=== PATIENT | male | born 1990 | race Caucasian/White ===

== ENCOUNTER 2021-07-05 03:01 | Emergency (ER) | payer BC ==
[~2021-07-05] VITALS: Ht 180.3 cm; Wt 90.3 kg
[~2021-07-05 03:01] MED LIST: AUGMENTIN 875875 MG PO; MELOXICAM7.5 MG PO; PERCOCET 5-3251 EACH PO; TOBRADEX ST EYE5 ML OP; TRAMADOL 50 MG50 MG PO
[2021-07-05 03:05] VITALS: BP 137/78
--- NOTE | 2021-07-05 07:27 | EKG ---
[address] [place] [address] ELECTROCARDIOGRAM REPORT Name: CESARIO DELEON Room #: REG [facility]#: [id number] Admission: 07/05/21 Attend Phys: Discharge: Date of : 89 Report #: [id number] [facility] ED Test Date: 2021-07-05 Test Time: 04:13:27 Pat Name: CESARIO DELEON Department: Room: Gender: Retail Bakery Manager: ANGELA : 1990 Requested By: Gabrielle Espinoza Order Number: [id number] MD: Nadir Friend Measurements Intervals [place] Rate: 82 P: 155 NC: 152 QRS: 149 QRSD: 85 T: 193 QT: 363 QTc: 424 Interpretive Statements Sinus atrial rhythm Right axis deviation Low voltage, extremity leads Nonspecific T abnormalities, lateral leads Lead(s) II were not used for morphology analysis No previous ECG available for comparison Electronically Signed On 07-05-2021 7:27:30 [employer] by Nadir Friend [email or web address] <ELECTRONICALLY SIGNED> By: Nadir Friend MD, [facility] 07/05/21 0727 0413 0413 Nadir Friend MD, FACC /EPI
== END 2021-07-05 06:40 | disposition home or self-care (01) ==
LOC: ER 03:01
PROVIDERS: Emergency Medicine
DX: R07.89 Other chest pain (principal); Z20.822 Contact with and (suspected) exposure to COVID-19